=== PATIENT | male | born 1955 | race Caucasian/White ===

== ENCOUNTER 2019-05-05 11:32 | Emergency (ER) | payer OTHER ==
[~2019-05-05] VITALS: Ht 177.8 cm; Wt 93.9 kg
[2019-05-05 12:15] LABS: BASOPHILS ABSOLUTE AUTO 0.02 K/mm3 (0.00-0.23); BASOPHILS PERCENT AUTO 0 % (0-2); EOSINOPHILS ABSOLUTE AUTO 0.06 K/mm3 (0.00-0.68); EOSINOPHILS PERCENT AUTO 1 % (0-6); Hematocrit 33.7 % (37.0-53.0); Hemoglobin 10.5 g/dL (13.5-17.5); IMMATURE GRAN ABSOLUTE AUTO 0.01 K/mm3 (0.00-0.10); IMMATURE GRAN PERCENT AUTO 0 % (0-1); LYMPHOCYTES ABSOLUTE AUTO 0.93 K/mm3 (0.84-5.20); LYMPHOCYTES PERCENT AUTO 16 % (21-46); MONOCYTES ABSOLUTE AUTO 0.46 K/mm3 (0.16-1.47); MONOCYTES PERCENT AUTO 8 % (4-13); Mean Corpuscular HGB 25.5 pg (26.0-34.0); Mean Corpuscular HGB Conc 31.2 g/dL (31.5-36.5); Mean Corpuscular Volume 82 fL (80-100); Mean Platelet Volume 9.9 fL (9.1-12.4); NEUTROPHILS ABSOLUTE AUTO 4.22 K/mm3 (1.96-9.15); NEUTROPHILS PERCENT AUTO 74 % (41-73); Platelet Count 311 K/mm3 (150-400); RDW Coefficient Variation 16.1 % (11.7-14.2); RDW Standard Deviation 48.6 fL (35.1-46.3); Red Blood Cell Count 4.11 M/mm3 (4.30-5.90)
[2019-05-05 12:38] LABS: Alanine Aminotransfer (ALT/SGP 22 U/L (12-78); Albumin, Blood 3.8 g/dL (3.4-5.0); Albumin/Globulin Ratio 1.1 (0.8-1.8); Alk Phos 81 U/L (50-136); Anion Gap 5 mmol/L (6-16); Aspartate Aminotrans (AST/SGOT 24 U/L (12-37); Bilirubin, Total 0.9 mg/dL (0.1-1.0); Blood Urea Nitrogen 11 mg/dL (8-24); Bun/Creatinine Ratio 9.1 (12.0-20.0); CO2, Blood 26 mmol/L (21-32); Calcium, Blood 9.3 mg/dL (8.5-10.1); Chloride, Blood 110 mmol/L (98-108); Creatinine, Blood 1.21 mg/dL (0.60-1.20); Globulin, Blood 3.4 g/dL (2.2-4.0); Glomerular Filtration Rate >60 (60-); Glucose, Blood 111 mg/dL (70-99); Potassium, Blood 4.3 mmol/L (3.5-5.5); Sodium, Blood 141 mmol/L (136-145); Total Protein, Blood 7.2 g/dL (6.4-8.2)
[2019-05-05] MEDS ORDERED: VALS80 PO (13:15)
[2019-05-05] MEDS ORDERED: Ultram50 MG PO (14:25)
== END 2019-05-05 14:40 | disposition home or self-care (01) ==
LOC: ER 11:32
PROVIDERS: Emergency Medicine
DX: M54.5 Low back pain (principal); M54.6 Pain in thoracic spine; Z87.891 Personal history of nicotine dependence; C61 Malignant neoplasm of prostate; Z79.899 Other long term (current) drug therapy; Z88.0 Allergy status to penicillin
CPT/HCPCS: 36415; 72070; 72100; 80053; 85025

== ENCOUNTER 2019-07-26 14:46 | Emergency (ER) | payer OTHER ==
[~2019-07-26] VITALS: Ht 177.8 cm; Wt 97.5 kg
[~2019-07-26 14:46] MED LIST: BICALUTAMIDE50 MG PO; Ultram50 MG PO; VALS80 PO
[2019-07-26 15:26] LABS: BASOPHILS ABSOLUTE AUTO 0.02 K/mm3 (0.00-0.23); BASOPHILS PERCENT AUTO 0 % (0-2); EOSINOPHILS ABSOLUTE AUTO 0.01 K/mm3 (0.00-0.68); EOSINOPHILS PERCENT AUTO 0 % (0-6); Hematocrit 29.7 % (37.0-53.0); Hemoglobin 9.2 g/dL (13.5-17.5); IMMATURE GRAN ABSOLUTE AUTO 0.03 K/mm3 (0.00-0.10); IMMATURE GRAN PERCENT AUTO 0 % (0-1); LYMPHOCYTES ABSOLUTE AUTO 0.95 K/mm3 (0.84-5.20); LYMPHOCYTES PERCENT AUTO 14 % (21-46); MONOCYTES ABSOLUTE AUTO 0.42 K/mm3 (0.16-1.47); MONOCYTES PERCENT AUTO 6 % (4-13); Mean Corpuscular Volume 91 fL (80-100); Mean Platelet Volume 9.9 fL (9.1-12.4); NEUTROPHILS ABSOLUTE AUTO 5.26 K/mm3 (1.96-9.15); NEUTROPHILS PERCENT AUTO 79 % (41-73); Platelet Count 325 K/mm3 (150-400); RDW Coefficient Variation 19.9 % (11.7-14.2); RDW Standard Deviation 66.1 fL (35.1-46.3); Red Blood Cell Count 3.28 M/mm3 (4.30-5.90); White Blood Cell Count 6.69 K/mm3 (4.00-11.30)
[2019-07-26 15:45] LABS: Alanine Aminotransfer (ALT/SGP 36 U/L (12-78); Albumin, Blood 3.2 g/dL (3.4-5.0); Albumin/Globulin Ratio 0.9 (0.8-1.8); Alk Phos 82 U/L (50-136); Anion Gap 5 mmol/L (6-16); Aspartate Aminotrans (AST/SGOT 29 U/L (12-37); Bilirubin, Total 0.4 mg/dL (0.1-1.0); Blood Urea Nitrogen 11 mg/dL (8-24); Bun/Creatinine Ratio 10.3 (12.0-20.0); CO2, Blood 26 mmol/L (21-32); Calcium, Blood 8.6 mg/dL (8.5-10.1); Chloride, Blood 111 mmol/L (98-108); Creatinine, Blood 1.07 mg/dL (0.60-1.20); Globulin, Blood 3.4 g/dL (2.2-4.0); Glomerular Filtration Rate >60 (60-); Glucose, Blood 98 mg/dL (70-99); Potassium, Blood 4.3 mmol/L (3.5-5.5); Sodium, Blood 142 mmol/L (136-145); Total Protein, Blood 6.6 g/dL (6.4-8.2); Troponin I <0.015 ng/mL (0.000-0.040)
== END 2019-07-26 18:13 | disposition home or self-care (01) ==
LOC: ER 14:46
PROVIDERS: Physician Assistant
DX: R07.9 Chest pain, unspecified (principal); C61 Malignant neoplasm of prostate; C79.51 Secondary malignant neoplasm of bone; Z88.0 Allergy status to penicillin; Z79.899 Other long term (current) drug therapy; Z87.891 Personal history of nicotine dependence
CPT/HCPCS: 36415; 71046; 71260; 80053; 83690; 84484; 85025; 93005; 93010; 99285-25; Q9967

== ENCOUNTER 2019-08-29 15:40 | Day surgery (SDC) | payer OTHER ==
[2019-08-29] MEDS ORDERED: OXYC10TA19 PO (16:22)
--- NOTE | 2019-08-29 20:56 | NUR ---
transfusion completed. pt is driving him home. pt has all belongings.
== END 2019-08-29 21:15 | disposition home or self-care (01) ==
LOC: MEDS 15:40 → TRN 15:40
DX: C61 Malignant neoplasm of prostate (principal)
CPT/HCPCS: 36430; 86850; 86900; 86901; 86923; P9016

== ENCOUNTER 2019-09-12 00:09 | Day surgery (SDC) | payer OTHER ==
[~2019-09-12 00:09] MED LIST changes: +OXYC10TA19 PO
== END 2019-09-12 22:40 | disposition home or self-care (01) ==
LOC: ATC 00:09
DX: C61 Malignant neoplasm of prostate (principal); Z87.891 Personal history of nicotine dependence; Z88.0 Allergy status to penicillin
CPT/HCPCS: J7050

== ENCOUNTER 2019-09-12 08:51 | Day surgery (SDC) | payer OTHER ==
[2019-09-10 14:32] LABS: BASOPHILS ABSOLUTE AUTO 0.04 K/mm3 (0.00-0.23); BASOPHILS PERCENT AUTO 1 % (0-2); EOSINOPHILS ABSOLUTE AUTO 0.01 K/mm3 (0.00-0.68); EOSINOPHILS PERCENT AUTO 0 % (0-6); Hemoglobin 7.5 g/dL (13.5-17.5); IMMATURE GRAN ABSOLUTE AUTO 0.01 K/mm3 (0.00-0.10); IMMATURE GRAN PERCENT AUTO 0 % (0-1); LYMPHOCYTES ABSOLUTE AUTO 0.78 K/mm3 (0.84-5.20); LYMPHOCYTES PERCENT AUTO 19 % (21-46); MONOCYTES ABSOLUTE AUTO 0.39 K/mm3 (0.16-1.47); MONOCYTES PERCENT AUTO 9 % (4-13); Mean Corpuscular HGB 25.4 pg (26.0-34.0); Mean Corpuscular Volume 85 fL (80-100); NEUTROPHILS ABSOLUTE AUTO 2.97 K/mm3 (1.96-9.15); NEUTROPHILS PERCENT AUTO 71 % (41-73); Platelet Count 386 K/mm3 (150-400); RDW Coefficient Variation 18.9 % (11.7-14.2); RDW Standard Deviation 58.4 fL (35.1-46.3); Red Blood Cell Count 2.95 M/mm3 (4.30-5.90)
[2019-09-10 14:44] LABS: Alanine Aminotransfer (ALT/SGP 19 U/L (12-78); Albumin, Blood 2.9 g/dL (3.4-5.0); Albumin/Globulin Ratio 1.1 (0.8-1.8); Alk Phos 63 U/L (50-136); Anion Gap 4 mmol/L (6-16); Aspartate Aminotrans (AST/SGOT 17 U/L (12-37); Bilirubin, Total 0.7 mg/dL (0.1-1.0); Blood Urea Nitrogen 8 mg/dL (8-24); Bun/Creatinine Ratio 7.8 (12.0-20.0); CO2, Blood 26 mmol/L (21-32); Calcium, Blood 8.4 mg/dL (8.5-10.1); Chloride, Blood 112 mmol/L (98-108); Creatinine, Blood 1.02 mg/dL (0.60-1.20); Globulin, Blood 2.7 g/dL (2.2-4.0); Glomerular Filtration Rate >60 (60-); Glucose, Blood 95 mg/dL (70-99); Potassium, Blood 4.5 mmol/L (3.5-5.5); Sodium, Blood 142 mmol/L (136-145); Total Protein, Blood 5.6 g/dL (6.4-8.2)
== END 2019-09-12 10:49 | disposition home or self-care (01) ==
LOC: ATC 08:51 → LAB FUT 09-09 07:05 → EDSTATUS 09-09 07:05
PROVIDERS: Internal Medicine Hematology & Oncology
DX: C61 Malignant neoplasm of prostate (principal); Z87.891 Personal history of nicotine dependence; Z88.0 Allergy status to penicillin; C77.9 Secondary and unspecified malignant neoplasm of lymph node, unspecified
CPT/HCPCS: 36415; 36430; 80053; 84153; 85025; 86850; 86900; 86901; 86923; J7050; P9016

== ENCOUNTER 2019-11-20 19:34 | Inpatient (IN) | payer OTHER ==
[~2019-11-20] VITALS: Ht 177.8 cm; Wt 97.7 kg
[2019-11-20 20:27] LABS: BASOPHILS ABSOLUTE AUTO 0.03 K/mm3 (0.00-0.23); BASOPHILS PERCENT AUTO 1 % (0-2); EOSINOPHILS ABSOLUTE AUTO 0.11 K/mm3 (0.00-0.68); EOSINOPHILS PERCENT AUTO 3 % (0-6); Hematocrit 30.4 % (37.0-53.0); Hemoglobin 8.7 g/dL (13.5-17.5); IMMATURE GRAN ABSOLUTE AUTO 0.01 K/mm3 (0.00-0.10); IMMATURE GRAN PERCENT AUTO 0 % (0-1); LYMPHOCYTES ABSOLUTE AUTO 0.93 K/mm3 (0.84-5.20); LYMPHOCYTES PERCENT AUTO 21 % (21-46); MONOCYTES ABSOLUTE AUTO 0.44 K/mm3 (0.16-1.47); MONOCYTES PERCENT AUTO 10 % (4-13); Mean Corpuscular HGB 22.2 pg (26.0-34.0); Mean Corpuscular HGB Conc 28.6 g/dL (31.5-36.5); Mean Corpuscular Volume 78 fL (80-100); Mean Platelet Volume 9.4 fL (9.1-12.4); NEUTROPHILS ABSOLUTE AUTO 2.95 K/mm3 (1.96-9.15); NEUTROPHILS PERCENT AUTO 66 % (41-73); Platelet Count 326 K/mm3 (150-400); RDW Coefficient Variation 17.8 % (11.7-14.2); RDW Standard Deviation 49.5 fL (35.1-46.3); Red Blood Cell Count 3.92 M/mm3 (4.30-5.90); White Blood Cell Count 4.47 K/mm3 (4.00-11.30)
[2019-11-20 20:50] LABS: Alanine Aminotransfer (ALT/SGP 24 U/L (12-78); Albumin, Blood 3.7 g/dL (3.4-5.0); Albumin/Globulin Ratio 1.2 (0.8-1.8); Alk Phos 77 U/L (50-136); Anion Gap 5 mmol/L (6-16); Aspartate Aminotrans (AST/SGOT 13 U/L (12-37); Bilirubin, Total 0.6 mg/dL (0.1-1.0); Blood Urea Nitrogen 12 mg/dL (8-24); Bun/Creatinine Ratio 11.8 (12.0-20.0); CO2, Blood 27 mmol/L (21-32); Calcium, Blood 8.9 mg/dL (8.5-10.1); Chloride, Blood 109 mmol/L (98-108); Creatinine, Blood 1.02 mg/dL (0.60-1.20); Globulin, Blood 3.2 g/dL (2.2-4.0); Glomerular Filtration Rate >60 (60-); Glucose, Blood 100 mg/dL (70-99); Potassium, Blood 4.1 mmol/L (3.5-5.5); Sodium, Blood 141 mmol/L (136-145); Total Protein, Blood 6.9 g/dL (6.4-8.2)
[2019-11-20 21:19] LABS: International Normalized Ratio 0.96; Prothrombin Time Results 10.3 Sec (9.7-11.5)
[2019-11-21 01:54] LABS: BASOPHILS ABSOLUTE AUTO 0.03 K/mm3 (0.00-0.23); BASOPHILS PERCENT AUTO 1 % (0-2); EOSINOPHILS ABSOLUTE AUTO 0.13 K/mm3 (0.00-0.68); EOSINOPHILS PERCENT AUTO 3 % (0-6); Hematocrit 27.2 % (37.0-53.0); Hemoglobin 7.9 g/dL (13.5-17.5); IMMATURE GRAN ABSOLUTE AUTO 0.02 K/mm3 (0.00-0.10); IMMATURE GRAN PERCENT AUTO 0 % (0-1); LYMPHOCYTES ABSOLUTE AUTO 1.56 K/mm3 (0.84-5.20); LYMPHOCYTES PERCENT AUTO 33 % (21-46); MONOCYTES ABSOLUTE AUTO 0.39 K/mm3 (0.16-1.47); MONOCYTES PERCENT AUTO 8 % (4-13); Mean Corpuscular HGB 22.1 pg (26.0-34.0); Mean Corpuscular Volume 76 fL (80-100); Mean Platelet Volume 8.8 fL (9.1-12.4); NEUTROPHILS ABSOLUTE AUTO 2.67 K/mm3 (1.96-9.15); NEUTROPHILS PERCENT AUTO 56 % (41-73); Platelet Count 273 K/mm3 (150-400); RDW Coefficient Variation 17.4 % (11.7-14.2); RDW Standard Deviation 48.7 fL (35.1-46.3); Red Blood Cell Count 3.57 M/mm3 (4.30-5.90)
[2019-11-21 02:24] LABS: Alanine Aminotransfer (ALT/SGP 22 U/L (12-78); Albumin, Blood 3.2 g/dL (3.4-5.0); Albumin/Globulin Ratio 1.1 (0.8-1.8); Alk Phos 63 U/L (50-136); Anion Gap 6 mmol/L (6-16); Aspartate Aminotrans (AST/SGOT 13 U/L (12-37); Bilirubin, Total 0.6 mg/dL (0.1-1.0); Blood Urea Nitrogen 11 mg/dL (8-24); CO2, Blood 24 mmol/L (21-32); Calcium, Blood 8.4 mg/dL (8.5-10.1); Chloride, Blood 112 mmol/L (98-108); Creatinine, Blood 0.92 mg/dL (0.60-1.20); Globulin, Blood 2.8 g/dL (2.2-4.0); Glomerular Filtration Rate >60 (60-); Glucose, Blood 97 mg/dL (70-99); Sodium, Blood 142 mmol/L (136-145)
--- NOTE | 2019-11-21 04:26 | NUR ---
SHIFT SUMMARY ADMITTED FOR AMS/WEAKNESS. DNR CODE. NOW COMFORT CARE. EXPECTED TO DC WITH HOSPICE TODAY. [facility], IS CAREGIVER AND CAN NO LONGER MANAGE HIS CARE ALONE. ORAL CARE PERFORMED THROUGHOUT SHIFT, Q2 TURNS, COMFORT CARE ASSESSMENTS Q2. PT DOES NOT EAT OR DRINK. PT SLEPT THROUGHOUT SHIFT, WAKING FOR REPOSITIONING ONLY - BUT HE DOES NOT COMMUNICATE. NO IV ACCESS, ON RA.
--- NOTE | 2019-11-21 04:31 | NUR ---
SHIFT SUMMARY ADMITTED FOR MELENA/GI BLEED. FULL CODE. GI CONSULT HAS BEEN CALLED THIS SHIFT. NS INFUSING @ 75 ML/HR. PT RECENTLY FINISHED CHEMO FOR STAGE 4 PROSTATE CANCER W/METS. CLEAR LIQUID DIET, RA. TELEMETRY IS MONITORING: NSR IN 70'S BPM. HE IS INDEPENDENT, A&O X4. HE HAS AN INGUINAL HERNIA THAT HE STATES HAS RECENTLY BEEN CAUSING HIM ABDOMINAL PAIN. HE HAS CHRONIC ANEMIA, WILL LIKELY REQUIRE A BLOOD TRANSFUSION - HIS [facility] DOES QUALIFY. BLOOD CONSENT IS SIGNED.
[2019-11-21 08:31] LABS: Hemoglobin 7.7 g/dL (13.5-17.5)
[2019-11-21 14:44] LABS: Hematocrit 27.1 % (37.0-53.0); Hemoglobin 7.7 g/dL (13.5-17.5)
--- NOTE | 2019-11-21 14:49 | NUR ---
Asked by youth care professional to meet with pt due to his stress and to contact for support. Pt resitng in bed very anxious. awaiting information on his scans and if he needs scope or transfusions. pt has been having more symptoms. Review of symptoms pt having increasing headaches on left sife of head with more dizziness and some visual disturbance in right eye. He has not fallen but feels he could from the balance issues and the visual disturbance. He has increased nausea when headaches are bad. pt mouth is sore and dentures no long fit well. He denies difficulty swallowing. no shortness of breath, He has chronic back and joint pain. having nausea and intermitant constipation. Pt states he is in recovery and avoids narcotics he has been taking asprin regularly and ibuphrophen. He is also taking several supplements including niacin and vitamin C. He is trying to continue to work and stuggling. Theraputic time with pt he was able to express some fear and stress. He is very distruaght at loosing his abilty to function and work and worries about his . Encouraged hope and strategies to communicate with his physicians aon plan of care. Spoke with briefly for support. Waiting for GI consult and plan . Need to discuss advance directives today was not a good time. Pt willing to continue treatment but stressing over prognosis.
--- NOTE | 2019-11-21 15:20 | NUR ---
PATIENT WITH AN UNEVENTFUL SHIFT. VITALS STABLE. NO COMPLAINTS OF PAIN OR DISCOMFORT. NPO AT THIS TIME. WILL CONTINUE TO MONITOR AND PROVIDE CARE NEEDED.
[2019-11-21 16:16] LABS: Hematocrit 27.1 % (37.0-53.0); Hemoglobin 7.7 g/dL (13.5-17.5)
--- NOTE | 2019-11-21 16:23 | NUR ---
FROM MED FLOOR TO [facility] VS. ADMISSION TO UNIT STARTED
--- NOTE | 2019-11-21 16:31 | NUR ---
11/21/19 1631 Rasta Christianson PATIENT DETERMINED TO BE ASA APPROPRIATE FOR PROPOFOL SEDATION PRIOR TO START OF PROCEDURE BY DR. Marco A Richardson Placed3-LEAD EKG REVIEWED WITH PHYSICIAN PRIOR TO START OF PROCEDURE.Patient to ENDO 1History, Chart, Medications and Allergies reviewed before start of procedure.MONITOR INTACT WITH CONTINUOUS PULSE OXIMETRY AND INTERMITTENT BP.O2 VIA N/C INTACT THROUGHOUT SEDATION/PROCEDURE.
[2019-11-21 21:59] LABS: Hematocrit 28.9 % (37.0-53.0); Hemoglobin 8.2 g/dL (13.5-17.5)
[2019-11-22 05:20] LABS: Hematocrit 25.9 % (37.0-53.0); Hemoglobin 7.5 g/dL (13.5-17.5)
--- NOTE | 2019-11-22 07:15 | NUR ---
STEREOTYPE MOLDER SUMMARY PT SLEPT WELL TONIGHT. A/O X4. INDEPENDENT IN ROOM. DENIES PAIN, SOB, NAUSEA, DIZZINIESS. PT REPORTS 2 BM TONIGHT. PT DESCRIBED BM LOOSE BLACK AND GREENISH. PLEASANT AND COOPERATIVE. REPORT GIVEN TO AM NURSE.
--- NOTE | 2019-11-22 17:15 | NUR ---
SHIFT SUMMARY PT ALERT AND ORIENTED THROUGHOUT THIS SHIFT. PT COOPERATIVE WITH CARE THIS SHIFT. PT INDEPENDENT IN THE ROOM AND WALKED IN THE [place]URN THIS AFTERNOON. PT REPORTS ONE INSTANCE OF BLACK STOOL THIS SHIFT. 1 UNIT OF BLOOD TRANSFUSED THIS SHIFT. PT TOLERATED THE TRANSFUSION WELL. PT REPORTS MORE ENERGY AFTER TRANSFUSION. PT CURRENTLY SITTING UP IN HIS ROOM.
--- NOTE | 2019-11-23 06:29 | NUR ---
A&0X4 THROUGHOUT SHIFT. DENIES PAIN, VSS. INDEPENDENT IN ROOM. PT WAS PLEASANT AND SLEPT WELL MOST OF THE NIGHT. HE IS CURRENTLY SITTING UP IN BED.
--- NOTE | 2019-11-23 07:54 | NUR ---
ASSUMPTION OF CARE NOTE- PATIENT IS ALERT AND ORIENTED INDEPENDENT IN THE ROOM. NO ACUTE CONCERNS AT THIS TIME, HE DENIES PAIN, NUMBNESS OR TINGLING. HE DOES NOT HAVE ANY CONCERNS CURRENTLY BUT DOES EXPRESS HIS WISH TO GO HOME.
[2019-11-23 08:24] LABS: Hematocrit 28.9 % (37.0-53.0); Hemoglobin 8.4 g/dL (13.5-17.5)
[2019-11-23] MEDS ORDERED: PANT20 PO (09:57)
[2019-11-24] MEDS ORDERED: CEPH500 PO (13:09)
== END 2019-11-23 10:27 | disposition home or self-care (01) | DRG 394 ==
LOC: ER 19:34 → MEDS 19:35
PROVIDERS: Emergency Medicine; Internal Medicine; Student in an Organized Health Care Education/Training Program; ADMIT Internal Medicine
PROC: 3E0G8GC Introduction of Other Therapeutic Substance into Upper GI, Via Natural or Artificial Opening Endoscopic (ICD-10-PCS; principal; 2019-11-21 17:00)
DX: K63.81 Dieulafoy lesion of intestine (principal); D62 Acute posthemorrhagic anemia; C79.9 Secondary malignant neoplasm of unspecified site; I10 Essential (primary) hypertension; K40.90 Unilateral inguinal hernia, without obstruction or gangrene, not specified as recurrent; C61 Malignant neoplasm of prostate
CPT/HCPCS: 36415; 36416; 74177; 78278; 80053; 82728; 82947; 83540; 83550; 85014; 85018; 85025; 85610; 86850; 86900; 86901; 86923; 93005; 93010; 96374-59; 99285-25; A9270-GY; A9560; C9113; J0171; J2250; J2704; J2916; J7030; J7040; J7120; P9016; Q9967

== ENCOUNTER 2019-11-24 12:33 | Emergency (ER) | payer OTHER ==
[~2019-11-24] VITALS: Ht 177.8 cm; Wt 96.6 kg
[~2019-11-24 12:33] MED LIST changes: +PANT20 PO
[2019-11-24] MEDS ORDERED: CEPH500 PO (13:09)
== END 2019-11-24 13:18 | disposition home or self-care (01) ==
LOC: ER 12:33
DX: L03.114 Cellulitis of left upper limb (principal); I10 Essential (primary) hypertension; Z88.0 Allergy status to penicillin; Z79.899 Other long term (current) drug therapy; Z87.891 Personal history of nicotine dependence
CPT/HCPCS: 99283

== ENCOUNTER 2020-01-28 14:52 | Observation (INO) | payer MEDICARE ==
[~2020-01-28] VITALS: Ht 180.3 cm; Wt 97.2 kg
[~2020-01-28 14:52] MED LIST changes: +CEPH500 PO
[2020-01-28 15:45] LABS: BASOPHILS ABSOLUTE AUTO 0.01 K/mm3 (0.00-0.23); BASOPHILS PERCENT AUTO 0 % (0-2); EOSINOPHILS ABSOLUTE AUTO 0.02 K/mm3 (0.00-0.68); EOSINOPHILS PERCENT AUTO 0 % (0-6); Hematocrit 26.6 % (37.0-53.0); Hemoglobin 7.8 g/dL (13.5-17.5); IMMATURE GRAN ABSOLUTE AUTO 0.01 K/mm3 (0.00-0.10); IMMATURE GRAN PERCENT AUTO 0 % (0-1); LYMPHOCYTES ABSOLUTE AUTO 0.61 K/mm3 (0.84-5.20); LYMPHOCYTES PERCENT AUTO 13 % (21-46); MONOCYTES ABSOLUTE AUTO 0.33 K/mm3 (0.16-1.47); MONOCYTES PERCENT AUTO 7 % (4-13); Mean Corpuscular HGB 22.5 pg (26.0-34.0); Mean Corpuscular HGB Conc 29.3 g/dL (31.5-36.5); Mean Corpuscular Volume 77 fL (80-100); Mean Platelet Volume 9.5 fL (9.1-12.4); NEUTROPHILS ABSOLUTE AUTO 3.69 K/mm3 (1.96-9.15); NEUTROPHILS PERCENT AUTO 79 % (41-73); Platelet Count 336 K/mm3 (150-400); RDW Coefficient Variation 19.6 % (11.7-14.2); RDW Standard Deviation 54.2 fL (35.1-46.3); Red Blood Cell Count 3.46 M/mm3 (4.30-5.90); White Blood Cell Count 4.67 K/mm3 (4.00-11.30)
[2020-01-28 15:57] LABS: Source, Urine Clean Catch
[2020-01-28 15:58] LABS: International Normalized Ratio 0.97; Prothrombin Time Results 10.4 Sec (9.7-11.5)
[2020-01-28 16:06] LABS: Alanine Aminotransfer (ALT/SGP 21 U/L (12-78); Albumin, Blood 3.6 g/dL (3.4-5.0); Albumin/Globulin Ratio 1.2 (0.8-1.8); Alk Phos 69 U/L (50-136); Anion Gap 7 mmol/L (6-16); Aspartate Aminotrans (AST/SGOT 18 U/L (12-37); Bilirubin, Total 0.7 mg/dL (0.1-1.0); Blood Urea Nitrogen 13 mg/dL (8-24); Bun/Creatinine Ratio 13.2 (12.0-20.0); CO2, Blood 25 mmol/L (21-32); Calcium, Blood 8.7 mg/dL (8.5-10.1); Chloride, Blood 110 mmol/L (98-108); Creatinine, Blood 0.99 mg/dL (0.60-1.20); Globulin, Blood 3.1 g/dL (2.2-4.0); Glomerular Filtration Rate >60 (60-); Glucose, Blood 108 mg/dL (70-99); Potassium, Blood 4.2 mmol/L (3.5-5.5); Sodium, Blood 142 mmol/L (136-145); Total Protein, Blood 6.7 g/dL (6.4-8.2)
[2020-01-28 16:14] LABS: Bilirubin, Urine Neg (Neg); Blood, Urine Neg (Neg); Glucose Qualitative, Urine Neg (Neg); Ketones, Urine Neg (Neg); Leukocyte Esterase, Urine Neg (Neg); Nitrite, Urine Neg (Neg); Protein, Urine 1+ (Neg); Specific Gravity, Urine 1.015 (1.003-1.022); Urobilinogen, Urine NORM (Normal)
[2020-01-28 16:15] LABS: Appearance, Urine Clear (Clear); Color, Urine Yellow (P-Yellow)
[2020-01-28 19:36] LABS: Hematocrit 25.9 % (37.0-53.0); Hemoglobin 7.4 g/dL (13.5-17.5)
[2020-01-28] MEDS ORDERED: TRAM50 PO (20:13)
--- NOTE | 2020-01-28 23:47 | NUR ---
PT REQUESTED FROM VICE PRESIDENT OF DEVELOPMENT THAT CODE STATUS BE CHANGED FROM FULL TO DNR. SPOKE W/ PT MYSELF AND CONFIRMED THIS. HE IS ADAMENT THAT HE DOES NOT WANT TO BE RESUSCITATED IF HIS HEART STOPS BEATING AND/OR HE STOPS BREATHING. CALL PLACED TO HOSPITALIST. DR. PAK INFORMED OF PT REQUEST AND AGREED W/ PT WISHES. CODE STATUS CHANGED TO DNR AND PT NOTIFIED CODE STATUS UPDATED.
[2020-01-29 02:05] LABS: Hematocrit 23.8 % (37.0-53.0)
--- NOTE | 2020-01-29 06:07 | NUR ---
SHIFT SUMMARY: VSS. AFEB. AAOX4. ABLE TO COMMUNICATE NEEDS. IRON INFUSED ORDERED. PROTONIX IV CONTINUOUSLY THROUGH THE NIGHT. HGB 7.0. PT APPEARS PALE. DENIES SOB. NO REPORTS OF BM TONIGHT. MEDICATED W/ ULTRAM FOR PAIN X 1. PT STATES HELPFUL. HAS BEEN NPO AFTER SINCE MIDNIGHT IN PREPARATION FOR POTENTIAL COLONOSCOPY TODAY. NO ACUTE CHANGES OVERNIGHT.
[2020-01-29 10:20] LABS: Hematocrit 25.1 % (37.0-53.0); Hemoglobin 7.3 g/dL (13.5-17.5)
[2020-01-29] MEDS ORDERED: DOCUZEN 8.6-501 EACH PO (13:19)
[2020-01-29] MEDS ORDERED: PANT40 PO (13:19)
[2020-01-29] MEDS ORDERED: FERSU300 PO (13:19)
--- NOTE | 2020-01-29 14:35 | NUR ---
DISCHARGE PT DISCHARGED TO HOME. EXPLAINED DISCHARGE INSTRUCTIONS TO PT AND HE REPORTS HE UNDERSTANDS. IV REMOVED WITHOUT DIFFICULTY. PT INDEPENDENT TO PRIVATE VEHICLE. PT'S BELONGINGS WITH PT.
== END 2020-01-29 14:00 | disposition home or self-care (01) ==
LOC: ER 14:52 → MEDS 14:53
PROVIDERS: Physician Assistant; ADMIT Internal Medicine
DX: K63.81 Dieulafoy lesion of intestine (principal); D50.0 Iron deficiency anemia secondary to blood loss (chronic); C61 Malignant neoplasm of prostate; K40.90 Unilateral inguinal hernia, without obstruction or gangrene, not specified as recurrent; I10 Essential (primary) hypertension; C79.89 Secondary malignant neoplasm of other specified sites; Z88.0 Allergy status to penicillin; Z79.899 Other long term (current) drug therapy; Z87.891 Personal history of nicotine dependence
CPT/HCPCS: 36415; 74177; 80053; 85014; 85018; 85025; 85610; 85730; 86850; 86900; 86901; 93005; 93010; 96361; 96365-59; 96375; 96376; 99285-25; A9270-GY; C9113; G0378; J2916; J7030; Q9967

== ENCOUNTER → 2020-02-01 | Outpatient (CLI) | payer MEDICARE ==
[~2020-02-01] MED LIST changes: +DOCUZEN 8.6-501 EACH PO; +FERSU300 PO; +PANT40 PO; +TRAM50 PO
[2020-02-04 20:07] LABS: Adenovirus F 40/41 Not Detected (NOT DETECT); Astrovirus Not Detected (NOT DETECT); Campylobacter Sp Not Detected (NOT DETECT); Cryptosporidium Not Detected (NOT DETECT); Cyclospora Cayetanensis Not Detected (NOT DETECT); E. Coli O157 Not Detected (NOT DETECT); Entamoeba Histolytica Not Detected (NOT DETECT); Enteroaggregative E. coli-EAEC Not Detected (NOT DETECT); Enteropathogenic E. coli-EPEC Not Detected (NOT DETECT); Enterotoxigenic E. coli-ETEC Not Detected (NOT DETECT); Giardia Lamblia Not Detected (NOT DETECT); Norovirus GI/GII Not Detected (NOT DETECT); Plesiomonas Shigelloides Not Detected (NOT DETECT); Rotavirus A Not Detected (NOT DETECT); Salmonella Sp Not Detected (NOT DETECT); Sapovirus Not Detected (NOT DETECT); Shiga Toxin-prod E. coli-STEC Not Detected (NOT DETECT); Shigella/Enteroin E. coli-EIEC Not Detected (NOT DETECT); Vibrio Cholerae Not Detected (NOT DETECT); Vibrio Sp Not Detected (NOT DETECT); Yersinia Enterocolitica Not Detected (NOT DETECT)
== END | disposition home or self-care (01) ==
LOC: LAB EV 09:00 → LAB SHORT 09:00
PROVIDERS: Internal Medicine Gastroenterology
DX: K52.9 Noninfective gastroenteritis and colitis, unspecified (principal)
CPT/HCPCS: 0097U; 83993; 87324

== ENCOUNTER 2020-02-19 00:39 | Day surgery (SDC) | payer MEDICARE | END 2020-02-19 17:30 | disposition home or self-care (01) | LOC: ATC 00:39 | DX: D64.9 Anemia, unspecified (principal); Z88.0 Allergy status to penicillin; Z88.2 Allergy status to sulfonamides; Z88.1 Allergy status to other antibiotic agents | CPT/HCPCS: 36415; 36430; 86850; 86900; 86901; 86923; J7050; P9016 ==

== ENCOUNTER 2020-04-23 11:44 | Day surgery (SDC) | payer MEDICARE ==
[~2020-04-23] VITALS: Ht 177.8 cm; Wt 98.7 kg
[~2020-04-23 11:44] MED LIST changes: +Aspir 8181 MG PO
[2020-04-23] MEDS ORDERED: OMEP20ER PO (13:16)
== END 2020-04-23 15:18 | disposition home or self-care (01) ==
LOC: ORSCSDS 11:44
PROVIDERS: Surgery
PROC: 0YU50JZ Supplement Right Inguinal Region with Synthetic Substitute, Open Approach (ICD-10-PCS; principal; 2020-04-23 13:00)
DX: K40.90 Unilateral inguinal hernia, without obstruction or gangrene, not specified as recurrent (principal); K21.9 Gastro-esophageal reflux disease without esophagitis; F17.210 Nicotine dependence, cigarettes, uncomplicated; Z79.899 Other long term (current) drug therapy; Z79.82 Long term (current) use of aspirin
CPT/HCPCS: C1781; J1040; J1100; J1885; J2001; J2250; J2405; J2704; J3010; J7120

== ENCOUNTER 2020-07-07 13:21 | Emergency (ER) | payer MEDICARE ==
[~2020-07-07] VITALS: Ht 177.8 cm; Wt 95.2 kg
[~2020-07-07 13:21] MED LIST changes: +OMEP20ER PO
[2020-07-07 14:10] LABS: BASOPHILS ABSOLUTE AUTO 0.02 K/mm3 (0.00-0.23); BASOPHILS PERCENT AUTO 0 % (0-2); EOSINOPHILS ABSOLUTE AUTO 0.01 K/mm3 (0.00-0.68); EOSINOPHILS PERCENT AUTO 0 % (0-6); Hematocrit 37.6 % (37.0-53.0); Hemoglobin 11.2 g/dL (13.5-17.5); IMMATURE GRAN ABSOLUTE AUTO 0.01 K/mm3 (0.00-0.10); IMMATURE GRAN PERCENT AUTO 0 % (0-1); LYMPHOCYTES ABSOLUTE AUTO 0.52 K/mm3 (0.84-5.20); LYMPHOCYTES PERCENT AUTO 6 % (21-46); MONOCYTES PERCENT AUTO 5 % (4-13); Mean Corpuscular HGB 23.4 pg (26.0-34.0); Mean Corpuscular HGB Conc 29.8 g/dL (31.5-36.5); Mean Corpuscular Volume 79 fL (80-100); Mean Platelet Volume 9.9 fL (9.1-12.4); NEUTROPHILS ABSOLUTE AUTO 7.21 K/mm3 (1.96-9.15); NEUTROPHILS PERCENT AUTO 88 % (41-73); Platelet Count 286 K/mm3 (150-400); RDW Coefficient Variation 19.5 % (11.7-14.2); RDW Standard Deviation 55.2 fL (35.1-46.3); Red Blood Cell Count 4.78 M/mm3 (4.30-5.90); White Blood Cell Count 8.17 K/mm3 (4.00-11.30)
[2020-07-07 14:28] LABS: Alanine Aminotransfer (ALT/SGP 22 U/L (12-78); Albumin, Blood 3.7 g/dL (3.4-5.0); Albumin/Globulin Ratio 1.2 (0.8-1.8); Alk Phos 88 U/L (50-136); Anion Gap 5 mmol/L (6-16); Aspartate Aminotrans (AST/SGOT 22 U/L (12-37); Bilirubin, Total 0.8 mg/dL (0.1-1.0); Blood Urea Nitrogen 15 mg/dL (8-24); Bun/Creatinine Ratio 17.1 (12.0-20.0); CO2, Blood 25 mmol/L (21-32); Calcium, Blood 8.6 mg/dL (8.5-10.1); Chloride, Blood 109 mmol/L (98-108); Creatinine, Blood 0.88 mg/dL (0.60-1.20); Globulin, Blood 3.1 g/dL (2.2-4.0); Glomerular Filtration Rate >60 (60-); Glucose, Blood 117 mg/dL (70-99); Potassium, Blood 4.3 mmol/L (3.5-5.5); Sodium, Blood 139 mmol/L (136-145); Total Protein, Blood 6.8 g/dL (6.4-8.2)
[2020-07-07 14:37] LABS: Influenza A, PCR Negative (NEGATIVE); Influenza B, PCR Negative (NEGATIVE); Resp Syncytial Virus, PCR Negative (NEGATIVE); SARS-Cov-2 (COVID-19) PCR, MMC Negative (NEGATIVE)
[2020-07-07] MEDS ORDERED: DOXY100 PO (16:02)
[2020-07-07] MEDS ORDERED: CYCL10 PO (16:02)
[2020-07-07] MEDS ORDERED: LIDO700A20 TOP (16:02)
== END 2020-07-07 16:18 | disposition home or self-care (01) ==
LOC: ER 13:21
PROVIDERS: Physician Assistant
DX: J32.9 Chronic sinusitis, unspecified (principal); I10 Essential (primary) hypertension; F17.210 Nicotine dependence, cigarettes, uncomplicated; Z20.822 Contact with and (suspected) exposure to COVID-19; Z79.899 Other long term (current) drug therapy; Z79.82 Long term (current) use of aspirin; Z88.0 Allergy status to penicillin; Z88.2 Allergy status to sulfonamides; Z88.1 Allergy status to other antibiotic agents
CPT/HCPCS: 0241U; 36415; 70450; 71046; 80053; 84484; 85025; 93005; 93010; 99284-25

== ENCOUNTER 2020-09-14 14:30 | Emergency (ER) | payer MEDICARE ==
[~2020-09-14] VITALS: Ht 177.8 cm; Wt 93.4 kg
[~2020-09-14 14:30] MED LIST changes: +CYCL10 PO; +DOXY100 PO; +LIDO700A20 TOP
[2020-09-14] MEDS ORDERED: AMOCLA875 PO (16:04)
== END 2020-09-14 16:15 | disposition home or self-care (01) ==
LOC: ER 14:30
DX: S51.851A Open bite of right forearm, initial encounter (principal); Z79.82 Long term (current) use of aspirin; Z79.899 Other long term (current) drug therapy; W54.0XXA Bitten by dog, initial encounter
CPT/HCPCS: 99282

== ENCOUNTER 2020-10-18 14:55 | Emergency (ER) | payer MEDICARE ==
[~2020-10-18] VITALS: Ht 177.8 cm; Wt 93.0 kg
[~2020-10-18 14:55] MED LIST changes: +AMOCLA875 PO
[2020-10-18 15:25] LABS: BASOPHILS ABSOLUTE AUTO 0.03 K/mm3 (0.00-0.23); BASOPHILS PERCENT AUTO 1 % (0-2); EOSINOPHILS ABSOLUTE AUTO 0.09 K/mm3 (0.00-0.68); EOSINOPHILS PERCENT AUTO 1 % (0-6); Hematocrit 33.6 % (37.0-53.0); Hemoglobin 10.5 g/dL (13.5-17.5); IMMATURE GRAN ABSOLUTE AUTO 0.02 K/mm3 (0.00-0.10); IMMATURE GRAN PERCENT AUTO 0 % (0-1); LYMPHOCYTES ABSOLUTE AUTO 0.91 K/mm3 (0.84-5.20); LYMPHOCYTES PERCENT AUTO 14 % (21-46); MONOCYTES ABSOLUTE AUTO 0.52 K/mm3 (0.16-1.47); MONOCYTES PERCENT AUTO 8 % (4-13); Mean Corpuscular HGB 26.2 pg (26.0-34.0); Mean Corpuscular HGB Conc 31.3 g/dL (31.5-36.5); Mean Corpuscular Volume 84 fL (80-100); Mean Platelet Volume 9.3 fL (9.1-12.4); NEUTROPHILS ABSOLUTE AUTO 4.78 K/mm3 (1.96-9.15); NEUTROPHILS PERCENT AUTO 75 % (41-73); Platelet Count 286 K/mm3 (150-400); RDW Coefficient Variation 18.2 % (11.7-14.2); RDW Standard Deviation 55.4 fL (35.1-46.3); Red Blood Cell Count 4.01 M/mm3 (4.30-5.90); White Blood Cell Count 6.35 K/mm3 (4.00-11.30)
[2020-10-18 15:49] LABS: Alanine Aminotransfer (ALT/SGP 22 U/L (12-78); Albumin, Blood 3.5 g/dL (3.4-5.0); Albumin/Globulin Ratio 1.1 (0.8-1.8); Alk Phos 96 U/L (50-136); Anion Gap 5 mmol/L (6-16); Aspartate Aminotrans (AST/SGOT 13 U/L (12-37); Bilirubin, Total 0.5 mg/dL (0.1-1.0); Blood Urea Nitrogen 11 mg/dL (8-24); Bun/Creatinine Ratio 11.9 (12.0-20.0); CO2, Blood 25 mmol/L (21-32); Calcium, Blood 8.5 mg/dL (8.5-10.1); Chloride, Blood 113 mmol/L (98-108); Creatinine, Blood 0.92 mg/dL (0.60-1.20); Globulin, Blood 3.3 g/dL (2.2-4.0); Glomerular Filtration Rate >60 (60-); Glucose, Blood 103 mg/dL (70-99); Magnesium, Blood 2.1 mg/dL (1.6-2.4); Potassium, Blood 4.1 mmol/L (3.5-5.5); Sodium, Blood 143 mmol/L (136-145); Total Protein, Blood 6.8 g/dL (6.4-8.2)
== END 2020-10-18 16:48 | disposition home or self-care (01) ==
LOC: ER 14:55
PROVIDERS: Physician Assistant
DX: M62.838 Other muscle spasm (principal); I10 Essential (primary) hypertension; F17.210 Nicotine dependence, cigarettes, uncomplicated; Z79.899 Other long term (current) drug therapy; Z88.0 Allergy status to penicillin; Z88.2 Allergy status to sulfonamides; Z88.1 Allergy status to other antibiotic agents
CPT/HCPCS: 36415; 80053; 83735; 85025; 99284

== ENCOUNTER 2021-01-09 19:34 | Emergency (ER) | payer MEDICARE ==
[~2021-01-09] VITALS: Ht 177.8 cm; Wt 95.2 kg
[2021-01-09 20:00] LABS: BASOPHILS ABSOLUTE AUTO 0.03 K/mm3 (0.00-0.23); BASOPHILS PERCENT AUTO 1 % (0-2); EOSINOPHILS ABSOLUTE AUTO 0.12 K/mm3 (0.00-0.68); EOSINOPHILS PERCENT AUTO 2 % (0-6); Hematocrit 38.5 % (37.0-53.0); Hemoglobin 12.1 g/dL (13.5-17.5); IMMATURE GRAN ABSOLUTE AUTO 0.01 K/mm3 (0.00-0.10); IMMATURE GRAN PERCENT AUTO 0 % (0-1); LYMPHOCYTES ABSOLUTE AUTO 0.91 K/mm3 (0.84-5.20); LYMPHOCYTES PERCENT AUTO 15 % (21-46); MONOCYTES ABSOLUTE AUTO 0.46 K/mm3 (0.16-1.47); MONOCYTES PERCENT AUTO 8 % (4-13); Mean Corpuscular HGB 26.5 pg (26.0-34.0); Mean Corpuscular HGB Conc 31.4 g/dL (31.5-36.5); Mean Corpuscular Volume 84 fL (80-100); Mean Platelet Volume 9.7 fL (9.1-12.4); NEUTROPHILS ABSOLUTE AUTO 4.44 K/mm3 (1.96-9.15); NEUTROPHILS PERCENT AUTO 74 % (41-73); Platelet Count 275 K/mm3 (150-400); RDW Coefficient Variation 21.5 % (11.7-14.2); RDW Standard Deviation 65.3 fL (35.1-46.3); Red Blood Cell Count 4.57 M/mm3 (4.30-5.90); White Blood Cell Count 5.97 K/mm3 (4.00-11.30)
[2021-01-09 20:25] LABS: Alanine Aminotransfer (ALT/SGP 24 U/L (12-78); Albumin, Blood 3.5 g/dL (3.4-5.0); Albumin/Globulin Ratio 0.9 (0.8-1.8); Alk Phos 113 U/L (50-136); Anion Gap 6 mmol/L (6-16); Aspartate Aminotrans (AST/SGOT 24 U/L (12-37); Bilirubin, Total 0.9 mg/dL (0.1-1.0); Blood Urea Nitrogen 9 mg/dL (8-24); Bun/Creatinine Ratio 9.8 (12.0-20.0); CO2, Blood 27 mmol/L (21-32); Calcium, Blood 9.1 mg/dL (8.5-10.1); Chloride, Blood 109 mmol/L (98-108); Creatinine, Blood 0.92 mg/dL (0.60-1.20); Globulin, Blood 3.7 g/dL (2.2-4.0); Glomerular Filtration Rate >60 (60-); Glucose, Blood 110 mg/dL (70-99); Sodium, Blood 142 mmol/L (136-145); Total Protein, Blood 7.2 g/dL (6.4-8.2)
[2021-01-10 00:03] LABS: Source, Urine Clean Catch
[2021-01-10 00:13] LABS: Bilirubin, Urine Neg (Neg); Blood, Urine Neg (Neg); Glucose Qualitative, Urine Neg (Neg); Ketones, Urine Neg (Neg); Leukocyte Esterase, Urine Neg (Neg); Nitrite, Urine Neg (Neg); Protein, Urine Neg (Neg); Urobilinogen, Urine NORM (Normal)
[2021-01-10 00:21] LABS: Appearance, Urine Clear (Clear); Color, Urine Yellow (P-Yellow)
[2021-01-10] MEDS ORDERED: PROM25 PO (00:41)
[2021-01-10] MEDS ORDERED: DIPATR PO (00:41)
== END 2021-01-10 01:26 | disposition home or self-care (01) ==
LOC: ER 19:34
PROVIDERS: Physician Assistant
DX: K52.9 Noninfective gastroenteritis and colitis, unspecified (principal); F17.210 Nicotine dependence, cigarettes, uncomplicated; Z88.0 Allergy status to penicillin; Z88.2 Allergy status to sulfonamides; Z79.899 Other long term (current) drug therapy
CPT/HCPCS: 36415; 74177; 80053; 81003; 83690; 85025; 96374-59; 96375; 99284-25; J1170; J1790; J2405; J7030; Q9967

== ENCOUNTER → 2021-07-09 | Outpatient (CLI) | payer MEDICARE ==
[~2021-07-09] MED LIST changes: +DIPATR PO; +PROM25 PO
== END | disposition home or self-care (01) ==
LOC: LAB SHORT 17:11
DX: R30.9 Painful micturition, unspecified (principal)
CPT/HCPCS: 87086

== ENCOUNTER 2021-11-14 17:41 | Emergency (ER) | payer MEDICARE ==
[~2021-11-14] VITALS: Ht 177.8 cm; Wt 89.4 kg
[2021-11-14 18:41] LABS: Source, Urine Clean Catch
[2021-11-14 19:02] LABS: Albumin, Blood 3.5 g/dL (3.4-5.0); Bilirubin, Total 0.5 mg/dL (0.1-1.0); Bun/Creatinine Ratio 9.2 (12.0-20.0); Calcium, Blood 9.4 mg/dL (8.5-10.1); Creatinine, Blood 0.87 mg/dL (0.60-1.20); Globulin, Blood 3.5 g/dL (2.2-4.0); Potassium, Blood 4.2 mmol/L (3.5-5.5)
[2021-11-14 19:07] LABS: BASOPHILS ABSOLUTE AUTO 0.03 K/mm3 (0.00-0.23); BASOPHILS PERCENT AUTO 1 % (0-2); EOSINOPHILS ABSOLUTE AUTO 0.11 K/mm3 (0.00-0.68); EOSINOPHILS PERCENT AUTO 2 % (0-6); Hematocrit 41.5 % (37.0-53.0); Hemoglobin 14.1 g/dL (13.5-17.5); IMMATURE GRAN PERCENT AUTO 0 % (0-1); LYMPHOCYTES ABSOLUTE AUTO 1.41 K/mm3 (0.84-5.20); LYMPHOCYTES PERCENT AUTO 25 % (21-46); MONOCYTES ABSOLUTE AUTO 0.41 K/mm3 (0.16-1.47); MONOCYTES PERCENT AUTO 7 % (4-13); Mean Corpuscular HGB 32.6 pg (26.0-34.0); Mean Corpuscular Volume 96 fL (80-100); NEUTROPHILS ABSOLUTE AUTO 3.74 K/mm3 (1.96-9.15); NEUTROPHILS PERCENT AUTO 66 % (41-73); Platelet Count 229 K/mm3 (150-400); RDW Coefficient Variation 14.2 % (11.7-14.2); RDW Standard Deviation 50.3 fL (35.1-46.3); Red Blood Cell Count 4.33 M/mm3 (4.30-5.90)
[2021-11-14 19:09] LABS: Appearance, Urine Clear (Clear); Bilirubin, Urine Neg (Neg); Blood, Urine Neg (Neg); Color, Urine Yellow (P-Yellow); Glucose Qualitative, Urine Neg (Neg); Ketones, Urine 1+ (Neg); Leukocyte Esterase, Urine Neg (Neg); Nitrite, Urine Neg (Neg); Protein, Urine Neg (Neg); Specific Gravity, Urine 1.015 (1.003-1.022); Urobilinogen, Urine NORM (Normal); pH, Urine 6.5 (5.0-8.0)
[2021-11-14] MEDS ORDERED: HYDACE25S PR (20:46)
== END 2021-11-14 21:32 | disposition home or self-care (01) ==
LOC: ER 17:41
PROVIDERS: Physician Assistant
DX: K62.89 Other specified diseases of anus and rectum (principal); R10.31 Right lower quadrant pain; I10 Essential (primary) hypertension; M19.90 Unspecified osteoarthritis, unspecified site; F17.210 Nicotine dependence, cigarettes, uncomplicated; Z79.899 Other long term (current) drug therapy; Z88.1 Allergy status to other antibiotic agents; Z88.0 Allergy status to penicillin; Z88.8 Allergy status to other drugs, medicaments and biological substances; Z85.46 Personal history of malignant neoplasm of prostate; Z92.3 Personal history of irradiation
CPT/HCPCS: 74177; 80053; 81003; 83690; 85025; 96374; 99284-25; A9270; J1885; Q9967

== ENCOUNTER 2022-02-28 17:59 | Emergency (ER) | payer MEDICARE ==
[~2022-02-28] VITALS: Ht 177.8 cm; Wt 90.7 kg
[~2022-02-28 17:59] MED LIST changes: +HYDACE25S PR
[2022-02-28 19:22] LABS: BASOPHILS ABSOLUTE AUTO 0.02 K/mm3 (0.00-0.23); BASOPHILS PERCENT AUTO 0 % (0-2); EOSINOPHILS ABSOLUTE AUTO 0.11 K/mm3 (0.00-0.68); EOSINOPHILS PERCENT AUTO 2 % (0-6); Hematocrit 40.9 % (37.0-53.0); Hemoglobin 13.8 g/dL (13.5-17.5); IMMATURE GRAN ABSOLUTE AUTO 0.01 K/mm3 (0.00-0.10); IMMATURE GRAN PERCENT AUTO 0 % (0-1); LYMPHOCYTES ABSOLUTE AUTO 1.13 K/mm3 (0.84-5.20); LYMPHOCYTES PERCENT AUTO 21 % (21-46); MONOCYTES ABSOLUTE AUTO 0.48 K/mm3 (0.16-1.47); MONOCYTES PERCENT AUTO 9 % (4-13); Mean Corpuscular HGB 32.5 pg (26.0-34.0); Mean Corpuscular HGB Conc 33.7 g/dL (31.5-36.5); Mean Corpuscular Volume 96 fL (80-100); Mean Platelet Volume 9.6 fL (9.1-12.4); NEUTROPHILS ABSOLUTE AUTO 3.53 K/mm3 (1.96-9.15); NEUTROPHILS PERCENT AUTO 67 % (41-73); Platelet Count 208 K/mm3 (150-400); RDW Coefficient Variation 13.2 % (11.7-14.2); RDW Standard Deviation 46.7 fL (35.1-46.3); Red Blood Cell Count 4.25 M/mm3 (4.30-5.90); White Blood Cell Count 5.28 K/mm3 (4.00-11.30)
[2022-02-28 19:38] LABS: Source, Urine Clean Catch
[2022-02-28 19:41] LABS: Appearance, Urine Clear (Clear); Bilirubin, Urine Neg (Neg); Blood, Urine Neg (Neg); Color, Urine Yellow (P-Yellow); Glucose Qualitative, Urine Neg (Neg); Ketones, Urine Neg (Neg); Leukocyte Esterase, Urine Neg (Neg); Nitrite, Urine Neg (Neg); Protein, Urine Neg (Neg); Urobilinogen, Urine NORM (Normal)
[2022-02-28 19:43] LABS: Albumin, Blood 3.2 g/dL (3.4-5.0); Albumin/Globulin Ratio 0.9 (0.8-1.8); Bilirubin, Total 0.5 mg/dL (0.1-1.0); Bun/Creatinine Ratio 11.3 (12.0-20.0); Calcium, Blood 9.1 mg/dL (8.5-10.1); Creatinine, Blood 0.8 mg/dL (0.60-1.20); Globulin, Blood 3.5 g/dL (2.2-4.0); Total Protein, Blood 6.7 g/dL (6.4-8.2)
[2022-02-28] MEDS ORDERED: PROM25 PO (22:33)
[2022-02-28] MEDS ORDERED: PROM12.5S PR (22:33)
[2022-02-28] MEDS ORDERED: ONDA4ODT MM (22:33)
== END 2022-02-28 22:48 | disposition home or self-care (01) ==
LOC: ER 17:59
PROVIDERS: Student in an Organized Health Care Education/Training Program
DX: C61 Malignant neoplasm of prostate (principal); C79.00 Secondary malignant neoplasm of unspecified kidney and renal pelvis; M54.50 Low back pain, unspecified; R10.31 Right lower quadrant pain; R59.0 Localized enlarged lymph nodes; R11.2 Nausea with vomiting, unspecified; I10 Essential (primary) hypertension; F17.210 Nicotine dependence, cigarettes, uncomplicated; Z79.899 Other long term (current) drug therapy; Z79.82 Long term (current) use of aspirin; Z88.1 Allergy status to other antibiotic agents; Z88.0 Allergy status to penicillin; Z88.2 Allergy status to sulfonamides
CPT/HCPCS: 74176; 80053; 81003; 85025; A9270

== ENCOUNTER 2022-04-08 15:20 | Emergency (ER) | payer MEDICARE ==
[~2022-04-08] VITALS: Ht 177.8 cm; Wt 88.5 kg
[~2022-04-08 15:20] MED LIST changes: +DOC250 PO; +METO25ER PO; +ONDA4ODT MM; +PROBIOTIC1 EA13 PO; +PROM12.5S PR
[2022-04-08 16:21] LABS: BASOPHILS ABSOLUTE AUTO 0.02 K/mm3 (0.00-0.23); BASOPHILS PERCENT AUTO 0 % (0-2); EOSINOPHILS ABSOLUTE AUTO 0.06 K/mm3 (0.00-0.68); EOSINOPHILS PERCENT AUTO 1 % (0-6); Hematocrit 40.1 % (37.0-53.0); Hemoglobin 13.9 g/dL (13.5-17.5); IMMATURE GRAN ABSOLUTE AUTO 0.01 K/mm3 (0.00-0.10); IMMATURE GRAN PERCENT AUTO 0 % (0-1); LYMPHOCYTES PERCENT AUTO 16 % (21-46); MONOCYTES ABSOLUTE AUTO 0.63 K/mm3 (0.16-1.47); MONOCYTES PERCENT AUTO 9 % (4-13); Mean Corpuscular HGB 32.3 pg (26.0-34.0); Mean Corpuscular HGB Conc 34.7 g/dL (31.5-36.5); Mean Corpuscular Volume 93 fL (80-100); Mean Platelet Volume 9.3 fL (9.1-12.4); NEUTROPHILS ABSOLUTE AUTO 5.29 K/mm3 (1.96-9.15); NEUTROPHILS PERCENT AUTO 74 % (41-73); Platelet Count 301 K/mm3 (150-400); RDW Standard Deviation 44.6 fL (35.1-46.3); Red Blood Cell Count 4.31 M/mm3 (4.30-5.90); White Blood Cell Count 7.11 K/mm3 (4.00-11.30)
[2022-04-08 16:38] LABS: Albumin, Blood 3.5 g/dL (3.4-5.0); Bilirubin, Total 0.7 mg/dL (0.1-1.0); Bun/Creatinine Ratio 9.1 (12.0-20.0); Calcium, Blood 9.8 mg/dL (8.5-10.1); Creatinine, Blood 0.88 mg/dL (0.60-1.20); Globulin, Blood 3.6 g/dL (2.2-4.0); Potassium, Blood 4.3 mmol/L (3.5-5.5); Total Protein, Blood 7.1 g/dL (6.4-8.2)
[2022-04-08 17:58] LABS: Source, Urine Clean Catch
[2022-04-08 18:08] LABS: Appearance, Urine Clear (Clear); Bilirubin, Urine Neg (Neg); Blood, Urine Neg (Neg); Color, Urine Yellow (P-Yellow); Glucose Qualitative, Urine Neg (Neg); Ketones, Urine 1+ (Neg); Leukocyte Esterase, Urine Neg (Neg); Nitrite, Urine Neg (Neg); Protein, Urine Neg (Neg); Urobilinogen, Urine NORM (Normal)
[2022-04-08] MEDS ORDERED: MORP10S PO (18:09)
[2022-04-08] MEDS ORDERED: PROM25 PO (20:18)
== END 2022-04-08 20:21 | disposition home or self-care (01) ==
LOC: ER 15:20
PROVIDERS: Physician Assistant
DX: R11.2 Nausea with vomiting, unspecified (principal); Z88.0 Allergy status to penicillin; Z88.1 Allergy status to other antibiotic agents; Z88.2 Allergy status to sulfonamides; Z79.899 Other long term (current) drug therapy; I10 Essential (primary) hypertension; Z87.891 Personal history of nicotine dependence
CPT/HCPCS: 36415; 74177; 80053; 81003; 83690; 85025; 96374-59; 99284-25; A9270; J2550; J7030; Q9967

== ENCOUNTER 2022-11-24 00:04 | Inpatient (IN) | payer MEDICARE ==
[~2022-11-24] VITALS: Ht 177.8 cm; Wt 93.0 kg
[~2022-11-24 00:04] MED LIST changes: +MORP10S PO
[2022-11-24] MEDS ORDERED: VALSARTAN160 MG PO (00:21)
[2022-11-24] MEDS ORDERED: FENTANYL1 EA19 TD (00:21)
[2022-11-24] MEDS ORDERED: TOPROL XL50 M1 PO (00:22)
[2022-11-24] MEDS ORDERED: [UNRECOGNIZED DRUG - OTHER] PO (00:22)
[2022-11-24 00:38] LABS: Source, Urine Clean Catch
[2022-11-24 00:50] LABS: Appearance, Urine Clear (Clear); Bilirubin, Urine Neg (Neg); Blood, Urine Neg (Neg); Color, Urine Yellow (P-Yellow); Glucose Qualitative, Urine Neg (Neg); Ketones, Urine 1+ (Neg); Leukocyte Esterase, Urine Neg (Neg); Nitrite, Urine Neg (Neg); Protein, Urine 1+ (Neg); Urobilinogen, Urine NORM (Normal)
[2022-11-24 00:52] LABS: BASOPHILS ABSOLUTE AUTO 0.05 K/mm3 (0.00-0.23); BASOPHILS PERCENT AUTO 1 % (0-2); EOSINOPHILS ABSOLUTE AUTO 0.02 K/mm3 (0.00-0.68); EOSINOPHILS PERCENT AUTO 0 % (0-6); Hematocrit 34.8 % (37.0-53.0); Hemoglobin 11.6 g/dL (13.5-17.5); IMMATURE GRAN ABSOLUTE AUTO 0.02 K/mm3 (0.00-0.10); IMMATURE GRAN PERCENT AUTO 0 % (0-1); LYMPHOCYTES ABSOLUTE AUTO 0.66 K/mm3 (0.84-5.20); LYMPHOCYTES PERCENT AUTO 7 % (21-46); MONOCYTES ABSOLUTE AUTO 0.67 K/mm3 (0.16-1.47); MONOCYTES PERCENT AUTO 7 % (4-13); Mean Corpuscular HGB 31.5 pg (26.0-34.0); Mean Corpuscular HGB Conc 33.3 g/dL (31.5-36.5); Mean Corpuscular Volume 95 fL (80-100); Mean Platelet Volume 10.2 fL (9.1-12.4); NEUTROPHILS ABSOLUTE AUTO 8.15 K/mm3 (1.96-9.15); NEUTROPHILS PERCENT AUTO 85 % (41-73); Platelet Count 290 K/mm3 (150-400); RDW Coefficient Variation 15.9 % (11.7-14.2); Red Blood Cell Count 3.68 M/mm3 (4.30-5.90); White Blood Cell Count 9.57 K/mm3 (4.00-11.30)
[2022-11-24 01:06] LABS: Albumin, Blood 3.1 g/dL (3.4-5.0); Albumin/Globulin Ratio 0.9 (0.8-1.8); Bilirubin, Total 0.4 mg/dL (0.1-1.0); Bun/Creatinine Ratio 14.2 (12.0-20.0); Creatinine, Blood 1.06 mg/dL (0.60-1.20); Globulin, Blood 3.6 g/dL (2.2-4.0); Potassium, Blood 4.4 mmol/L (3.5-5.5); Total Protein, Blood 6.7 g/dL (6.4-8.2)
[2022-11-24 04:54] VITALS: BP 123/68
[2022-11-24 05:35] LABS: BASOPHILS ABSOLUTE AUTO 0.06 K/mm3 (0.00-0.23); BASOPHILS PERCENT AUTO 1 % (0-2); EOSINOPHILS ABSOLUTE AUTO 0.03 K/mm3 (0.00-0.68); EOSINOPHILS PERCENT AUTO 0 % (0-6); Hematocrit 29.4 % (37.0-53.0); Hemoglobin 9.7 g/dL (13.5-17.5); IMMATURE GRAN ABSOLUTE AUTO 0.02 K/mm3 (0.00-0.10); IMMATURE GRAN PERCENT AUTO 0 % (0-1); LYMPHOCYTES PERCENT AUTO 13 % (21-46); MONOCYTES ABSOLUTE AUTO 0.76 K/mm3 (0.16-1.47); MONOCYTES PERCENT AUTO 9 % (4-13); Mean Corpuscular HGB 31.4 pg (26.0-34.0); Mean Corpuscular Volume 95 fL (80-100); Mean Platelet Volume 10.1 fL (9.1-12.4); NEUTROPHILS ABSOLUTE AUTO 6.62 K/mm3 (1.96-9.15); NEUTROPHILS PERCENT AUTO 77 % (41-73); Platelet Count 259 K/mm3 (150-400); RDW Standard Deviation 55.7 fL (35.1-46.3); Red Blood Cell Count 3.09 M/mm3 (4.30-5.90); White Blood Cell Count 8.59 K/mm3 (4.00-11.30)
[2022-11-24 05:55] LABS: Albumin, Blood 2.7 g/dL (3.4-5.0); Albumin/Globulin Ratio 0.8 (0.8-1.8); Bilirubin, Total 0.4 mg/dL (0.1-1.0); Bun/Creatinine Ratio 11.6 (12.0-20.0); Calcium, Blood 8.4 mg/dL (8.5-10.1); Creatinine, Blood 1.12 mg/dL (0.60-1.20); Globulin, Blood 3.2 g/dL (2.2-4.0); Potassium, Blood 4.2 mmol/L (3.5-5.5); Total Protein, Blood 5.9 g/dL (6.4-8.2)
--- NOTE | 2022-11-24 06:12 | NUR ---
SHIFT SUMMARY 67 YR M ADMITTED FOR LLQ PAIN. DNR. ASSUMED CARE OF PT FROM ED @ 0450. PT IS SCHEDULED TO HAVE APERMA CATH PLACED AT 0830. HE HAS BEEN NPO SINCE MIDNIGHT. HE IS A&O X 4 AND INDEPENDANT. HE IS PLEASANT AND COOPERATIVE W/ CARE.
[2022-11-24 07:27] VITALS: BP 126/70
--- NOTE | 2022-11-24 17:33 | NUR ---
PATIENT A/OX4, UP INDEPENDENTLY IN ROOM. VSS, ON RA. DENIES ANY NAUSEA THIS SHIFT. REPORTS LLQ ABDOMINAL PAIN, DILAUDID GIVEN X2 THIS SHIFT TO TREAT WITH STATED RELIEF. TRANSITIONED TO CLEAR LIQUIDS FOR DINNER AND PATIENT TOLEARTING DIET SO FAR. PATIENT WEARING JORGE HOSE, REFUSED SCD'S. 20G IV TO R HAND WNL, NS @ 100ML/HR INFUSING. PATIENT PLEASANT AND COOPERATIVE WITH CARE. ABLE TO MAKE NEEDS KNOWN.
[2022-11-24 19:52] VITALS: BP 139/75
[2022-11-25 03:29] VITALS: BP 106/64
--- NOTE | 2022-11-25 04:49 | NUR ---
SHIFT SUMMARY 67 YR M ADMITTED ON 11/24/22 FOR LLQ PAIN/SBO. DNR. NO ACUTE CHANGES THIS SHIFT. PT STILL C/O PAIN IN THE LLQ AND HAD AN EPISODE OF NAUSEA W/ VOMITING THIS SHIFT. HE WAS GIVEN AN ANTIEMETIC PER EMAR AND STATED RELIEF. HE HAS SLEPT FOR MOST OF THIS SHIFT AND IS INDEPENDANT IN THE ROOM. HE IS ABLE TO MAKE HUS NEEDS KNOWN AND IS PLEASANT AND COOPERATIVE WITH CARE.
[2022-11-25 04:57] LABS: Hematocrit 28.8 % (37.0-53.0); Hemoglobin 9.5 g/dL (13.5-17.5); Mean Corpuscular HGB 31.6 pg (26.0-34.0); Mean Corpuscular Volume 96 fL (80-100); Mean Platelet Volume 10.4 fL (9.1-12.4); Platelet Count 232 K/mm3 (150-400); RDW Coefficient Variation 16.3 % (11.7-14.2); RDW Standard Deviation 57.2 fL (35.1-46.3); Red Blood Cell Count 3.01 M/mm3 (4.30-5.90); White Blood Cell Count 4.76 K/mm3 (4.00-11.30)
[2022-11-25 05:20] LABS: Albumin, Blood 2.4 g/dL (3.4-5.0); Albumin/Globulin Ratio 0.9 (0.8-1.8); Bilirubin, Total 0.4 mg/dL (0.1-1.0); Bun/Creatinine Ratio 9.5 (12.0-20.0); Calcium, Blood 8.2 mg/dL (8.5-10.1); Creatinine, Blood 1.16 mg/dL (0.60-1.20); Globulin, Blood 2.7 g/dL (2.2-4.0); Magnesium, Blood 1.9 mg/dL (1.6-2.4); Percent Saturation 15.2 % (20.0-50.0); Potassium, Blood 4.2 mmol/L (3.5-5.5); Total Protein, Blood 5.1 g/dL (6.4-8.2)
[2022-11-25 07:42] VITALS: BP 134/75
--- NOTE | 2022-11-25 15:51 | NUR ---
DISCHARGE NOTE PT DISCHARGED TO HOME. NO NEW MEDICATIONS ORDERED. PT PROVIDED ORAL AND WRITTEN INSTRUCTIONS. PT TO FOLLOW UP WITH PCP DR HOYT.
== END 2022-11-25 15:42 | disposition home or self-care (01) | DRG 389 ==
LOC: ER 00:04 → MEDS 04:05
PROVIDERS: Emergency Medicine; Internal Medicine; Student in an Organized Health Care Education/Training Program; ADMIT Internal Medicine
DX: K56.609 Unspecified intestinal obstruction, unspecified as to partial versus complete obstruction (principal); K51.90 Ulcerative colitis, unspecified, without complications; Z66 Do not resuscitate; Z51.5 Encounter for palliative care; K59.00 Constipation, unspecified; C61 Malignant neoplasm of prostate; D63.8 Anemia in other chronic diseases classified elsewhere; F17.210 Nicotine dependence, cigarettes, uncomplicated; Z92.21 Personal history of antineoplastic chemotherapy; Z88.0 Allergy status to penicillin; Z88.2 Allergy status to sulfonamides; Z88.1 Allergy status to other antibiotic agents; Z88.8 Allergy status to other drugs, medicaments and biological substances
CPT/HCPCS: 36415; 74018; 74177; 80053; 82728; 83540; 83550; 83690; 83735; 85025; 85027; 96361; 96374-59; 96375; 96376; 99285-25; A9270; J1170; J1650; J2405; J7030; Q9967